=== PATIENT | male | born 1995 | race American Indian/Alaskan Native ===

== ENCOUNTER 2019-04-12 10:30 | Emergency (ER) | payer SELFPAY ==
--- NOTE | 2019-04-12 16:11 | Emergency Department Report ---
ED General Adult HPI - General Chief complaint: Psych Stated complaint: MENTAL EVAL Time Seen by Provider: 04/12/19 16:05 Source: patient Mode of arrival: Ambulatory Limitations: No Limitations - History of Present Illness Initial comments: 23-year-old male with a history of schizophrenia and depression presents stating that he would like to go to [place] with inpatient facility. Patient states he recently got a treatment 5 days ago after being released from [facility] [facility]. Patient states he has had no antipsychotic medication. Patient states that he last was admitted [facility] one year ago. Patient denies any suicidal or homicidal ideation. Patient has had no auditory hallucinations. - Related Data Home Medications Medication Instructions Recorded Confirmed Last Taken Quetiapine Fumarate [SEROquel Xr] 300 mg PO DAILY 04/12/19 04/12/19 Unknown Allergies Allergy/AdvReac Type Severity Reaction Status Date / Time No Known Allergies Allergy Unverified 04/12/19 10:32 ED Review of Systems ROS: Stated complaint: MENTAL EVAL Other details as noted in HPI Constitutional: denies: chills, fever Eyes: denies: eye pain, eye discharge, vision change ENT: denies: ear pain, throat pain Respiratory: denies: cough, shortness of breath, wheezing Cardiovascular: denies: chest pain, palpitations Endocrine: no symptoms reported Gastrointestinal: denies: abdominal pain, nausea, diarrhea Genitourinary: denies: urgency, dysuria Musculoskeletal: denies: back pain, joint swelling, arthralgia Skin: denies: rash, lesions Neurological: denies: headache, weakness, paresthesias Psychiatric: denies: anxiety, depression Hematological/Lymphatic: denies: easy bleeding, easy bruising ED Past Medical Hx - Past Medical History Hx Psychiatric Treatment: Yes (SCHZOPHENIA AND DEPRESSION) Additional medical history: CHRONIC BACK PAIN - Surgical History Past Surgical History?: No - Social History Smoking Status: Never Smoker Substance Use Type: None - Medications Home Medications: Home Medications Medication Instructions Recorded Confirmed Last Taken Type Quetiapine Fumarate [SEROquel Xr] 300 mg PO DAILY 04/12/19 04/12/19 Unknown History ED Physical Exam - General Limitations: No Limitations General appearance: alert, in no apparent distress - Head Head exam: Present: atraumatic, normocephalic - Eye Eye exam: Present: normal appearance - ENT ENT exam: Present: mucous membranes moist - Neck Neck exam: Present: normal inspection - Respiratory Respiratory exam: Present: normal lung sounds bilaterally. Absent: respiratory distress - Cardiovascular Cardiovascular Exam: Present: regular rate, normal rhythm. Absent: systolic murmur, diastolic murmur, rubs, gallop - GI/Abdominal GI/Abdominal exam: Present: soft, normal bowel sounds - Rectal Rectal exam: Present: deferred - Extremities Exam Extremities exam: Present: normal inspection - Back Exam Back exam: Present: normal inspection - Neurological Exam Neurological exam: Present: alert, oriented X3 - Psychiatric Psychiatric exam: Present: other (comfortable, no SI, no HI) - Skin Skin exam: Present: warm, dry, intact, normal color. Absent: rash ED Course Vital Signs 04/12/19 04/12/19 10:37 17:03 Temperature 98.1 F 98.2 F Pulse Rate 90 63 Respiratory 19 18 Rate Blood Pressure 151/84 138/88 [Left] O2 Sat by Pulse 98 100 Oximetry ED Medical Decision Making - Medical Decision Making Patient seen by [facility] and does not meet inpatient criteria. Patient be discharged to follow-up with psychiatry as an outpatient. - Differential Diagnosis Schizophrenia; Critical care attestation.: If time is entered above; I have spent that time in minutes in the direct care of this critically ill patient, excluding procedure time. ED Disposition Clinical Impression: Schizophrenia Disposition: DC-01 TO HOME OR SELFCARE Is pt being admited?: No Condition: Stable Referrals: [facility] [Outside] - 3-5 Days [facility] YURI ABRAHAM MD [Primary Care Provider] - 3-5 Days Time of Disposition: 18:52 Print Language: PARAGUAYAN
[2019-04-12 21:03] VITALS: BP 125/68
== END 2019-04-12 21:05 | disposition home or self-care (01) ==
LOC: ED 10:30 → EEVIPCON 10:30 → ED 21:05
DX: F20.9 Schizophrenia, unspecified (principal); F32.9 Major depressive disorder, single episode, unspecified; M54.9 Dorsalgia, unspecified; G89.29 Other chronic pain; Z79.899 Other long term (current) drug therapy

== ENCOUNTER 2020-06-14 00:04 | Emergency (ER) | payer SELFPAY ==
[2020-06-14 01:55] LABS: Basophils % (Auto) 0.4 % (0.0-1.8); Eosinophils % (Auto) 0.5 % (0.0-4.3); Hematocrit 42.2 % (35.5-45.6); Hemoglobin 13.9 gm/dl (11.8-15.2); Lymphocytes # (Auto) 2.5 K/mm3 (1.2-5.4); Lymphocytes % (Auto) 40.4 % (13.4-35.0); Mean Corpuscular HGB Conc 33 % (32-34); Mean Corpuscular Volume 86 fl (84-94); Monocytes # (Auto) 0.5 K/mm3 (0.0-0.8); Monocytes % (Auto) 8.6 % (0.0-7.3); Platelet Count 199 K/mm3 (140-440); Red Cell Distribution Width 13.5 % (13.2-15.2)
--- NOTE | 2020-06-14 01:56 | Emergency Department Report ---
ED Psych HPI - General Chief Complaint: Psych Stated Complaint: MH EVAL/HALLUCINATIONS Time Seen by Provider: 06/14/20 01:50 Source: patient Mode of arrival: Ambulatory Limitations: No Limitations - History of Present Illness Initial Comments: Patient is a 25-year-old male that presents emergency room with complaints of multiple hallucinations. Patient states he is having audio and visual hallucinations. Patient states he cannot control them anymore. Patient denies suicidal homicidal ideation. Patient states he is feeling depressed and anxious. Patient states he is having racing thoughts. Patient denies recent travel. Patient denies recent international travel. Patient denies exposure to the novel coronavirus. Patient denies sick contacts. Patient denies fever and chills. Patient denies cough. Patient denies diarrhea. Patient denies coming in contact with anybody with symptoms of the novel coronavirus. Complaint: other - Related Data Home Medications Medication Instructions Recorded Confirmed Last Taken Quetiapine Fumarate [SEROquel Xr] 300 mg PO DAILY 04/12/19 04/12/19 Unknown Previous Rx's Medication Instructions Recorded Last Taken Type Quetiapine Fumarate [SEROquel] 300 mg PO QDAY #10 tablet 04/12/19 Unknown Rx Allergies Allergy/AdvReac Type Severity Reaction Status Date / Time No Known Allergies Allergy Unverified 04/12/19 10:32 ED Review of Systems ROS: Stated complaint: MH EVAL/HALLUCINATIONS Other details as noted in HPI Constitutional: denies: chills, fever Eyes: denies: eye pain, eye discharge, vision change ENT: denies: ear pain, throat pain Respiratory: denies: cough, shortness of breath, wheezing Cardiovascular: denies: chest pain, palpitations Endocrine: no symptoms reported Gastrointestinal: denies: abdominal pain, nausea, diarrhea Genitourinary: denies: urgency, dysuria Musculoskeletal: denies: back pain, joint swelling, arthralgia Skin: denies: rash, lesions Neurological: denies: headache, weakness, paresthesias Psychiatric: as per HPI, anxiety, depression, auditory hallucinations, visual hallucinations. denies: homicidal thoughts, suicidal thoughts Hematological/Lymphatic: denies: easy bleeding, easy bruising ED Past Medical Hx - Past Medical History Previous Medical History?: Yes Hx Psychiatric Treatment: Yes (SCHIZOPHrENIA AND DEPRESSION) Additional medical history: CHRONIC BACK PAIN - Surgical History Past Surgical History?: No - Family History Family history: no significant - Social History Smoking Status: Current Every Day Smoker Substance Use Type: None - Medications Home Medications: Home Medications Medication Instructions Recorded Confirmed Last Taken Type Quetiapine Fumarate [SEROquel Xr] 300 mg PO DAILY 04/12/19 04/12/19 Unknown History Quetiapine Fumarate [SEROquel] 300 mg PO QDAY #10 tablet 04/12/19 Unknown Rx ED Physical Exam - General Limitations: No Limitations General appearance: alert, in no apparent distress - Head Head exam: Present: atraumatic, normocephalic - Eye Eye exam: Present: normal appearance - ENT ENT exam: Present: mucous membranes moist - Neck Neck exam: Present: normal inspection - Respiratory Respiratory exam: Present: normal lung sounds bilaterally. Absent: respiratory distress, wheezes, rales - Cardiovascular Cardiovascular Exam: Present: regular rate, normal rhythm. Absent: systolic murmur, diastolic murmur, rubs, gallop - GI/Abdominal GI/Abdominal exam: Present: soft, normal bowel sounds - Rectal Rectal exam: Present: deferred - Extremities Exam Extremities exam: Present: normal inspection - Back Exam Back exam: Present: normal inspection - Neurological Exam Neurological exam: Present: alert, oriented X3 - Psychiatric Psychiatric exam: Present: depressed, flat affect - Expanded Psychiatric Exam Expanded Focused psych exam: Present: pressured speech, paranoid, restlessness - Skin Skin exam: Present: warm, dry, intact, normal color. Absent: rash ED Course Vital Signs 06/14/20 00:57 Temperature 98.1 F Pulse Rate 74 Respiratory 18 Rate Blood Pressure 141/69 O2 Sat by Pulse 99 Oximetry - Reevaluation(s) Reevaluation #1: Patient placed on a ER hold. 06/14/20 02:00 Reevaluation #2: Patient is medically cleared. Patient will remain in the ER as an ER hold until patient is psychiatric clear but by psych. Patient's final disposition will come from our mental health and psychiatry team. 06/14/20 04:43 ED Medical Decision Making - Lab Data Result diagrams: 06/14/20 01:32 06/14/20 01:32 - Medical Decision Making Patient is a 25-year-old male that presents emergency room for hallucinations. Patient had pretty severe hallucinations. Patient also noted flat affect. Patient will be evaluated by our mental health team. Patient had medical clearance labs. Patient's labs are essentially unremarkable. Patient will remain in the ER as an ER hold until the patient is cleared mental health team. Patient's final disposition will come from our mental health team. - Differential Diagnosis Hallucinations, schizophrenia, depression, anxiety Critical care attestation.: If time is entered above; I have spent that time in minutes in the direct care of this critically ill patient, excluding procedure time. ED Disposition Clinical Impression: Hallucinations Psychosis Qualifiers: Psychosis type: unspecified psychosis type Qualified Code(s): F29 - Unspecified psychosis not due to a substance or known physiological condition Is pt being admited?: No Does the pt Need Aspirin: No Condition: Stable Referrals: PRIMARY CARE, [Primary Care Provider] - 2-3 Days Time of Disposition: 04:46
[2020-06-14 02:11] LABS: BUN/Creatinine Ratio 14; Blood Urea Nitrogen 14 mg/dL (9-20); Calcium 9.4 mg/dL (8.4-10.2); Hemolysis Index 11
[2020-06-14 02:23] LABS: Amphetamine Screen,Urine PRESUMPTIVE NEGATIVE; Benzodiazepines Screen,Urine PRESUMPTIVE NEGATIVE; Cannabinoid Screen,Urine PRESUMPTIVE POSITIVE; Cocaine Screen,Urine PRESUMPTIVE NEGATIVE; Methadone Screen,Urine PRESUMPTIVE NEGATIVE; Opiate Screen,Urine PRESUMPTIVE NEGATIVE
[2020-06-14 02:39] LABS: Bilirubin,Urine NEG (Negative); Blood,Urine NEG (Negative); Color,Urine Yellow (Yellow); Hyaline Casts,Urine 1 /LPF; Mucus,Urine 2+ /HPF; Protein,Urine <15 mg/dL mg/dL (Negative)
[2020-06-14 10:28] VITALS: BP 144/93
--- NOTE | 2020-06-14 12:59 | Event Note ---
Date: 06/14/20 Patient can be discharged home and have follow-up resources with mental health patient is not having any active suicidal or homicidal ideation
== END 2020-06-14 13:13 | disposition home or self-care (01) ==
LOC: ED 00:04
DX: F29 Unspecified psychosis not due to a substance or known physiological condition (principal); F20.9 Schizophrenia, unspecified; F17.200 Nicotine dependence, unspecified, uncomplicated; Z79.899 Other long term (current) drug therapy
CPT/HCPCS: 36415; 80048; 80307; 80320; 81001; 85025; G0480

== ENCOUNTER 2020-07-30 02:47 | Emergency (ER) | payer SELFPAY ==
[2020-07-30 03:29] LABS: Basophils % (Auto) 0.5 % (0.0-1.8); Eosinophils % (Auto) 0.3 % (0.0-4.3); Hematocrit 40.7 % (35.5-45.6); Hemoglobin 13.4 gm/dl (11.8-15.2); Lymphocytes # (Auto) 1.9 K/mm3 (1.2-5.4); Lymphocytes % (Auto) 32.5 % (13.4-35.0); Mean Corpuscular HGB Conc 33 % (32-34); Mean Corpuscular Volume 86 fl (84-94); Monocytes # (Auto) 0.4 K/mm3 (0.0-0.8); Monocytes % (Auto) 6.4 % (0.0-7.3); Platelet Count 202 K/mm3 (140-440); Red Blood Count 4.71 M/mm3 (3.65-5.03); Red Cell Distribution Width 13.6 % (13.2-15.2)
--- NOTE | 2020-07-30 03:39 | Emergency Department Report ---
ED Psych HPI - General Chief Complaint: Psych Stated Complaint: MH Time Seen by Provider: 07/30/20 03:05 Source: patient Mode of arrival: Ambulatory - History of Present Illness Initial Comments: Patient is a 25-year-old [place] male with past medical history of schizophrenia who is presenting with homicidal thoughts. States these are generalized and not directed towards anyone in particular. Just feels like he has a rage in him. He is hearing voices which are command hallucinations. Denies suicidal ideations. States he has used marijuana tonight but denies any other drug use or alcohol. Patient states he should be on medications but is not currently. - Related Data Home Medications Medication Instructions Recorded Confirmed Last Taken Quetiapine Fumarate [SEROquel Xr] 300 mg PO DAILY 04/12/19 04/12/19 Unknown Previous Rx's Medication Instructions Recorded Last Taken Type Quetiapine Fumarate [SEROquel] 300 mg PO QDAY #10 tablet 04/12/19 Unknown Rx Allergies Allergy/AdvReac Type Severity Reaction Status Date / Time No Known Allergies Allergy Unverified 04/12/19 10:32 ED Review of Systems ROS: Stated complaint: MH Other details as noted in HPI Comment: All other systems reviewed and negative ED Past Medical Hx - Past Medical History Previous Medical History?: Yes Hx Psychiatric Treatment: Yes (SCHIZOPHrENIA AND DEPRESSION) Additional medical history: CHRONIC BACK PAIN - Surgical History Past Surgical History?: No - Social History Smoking Status: Current Every Day Smoker Substance Use Type: None, Marijuana - Medications Home Medications: Home Medications Medication Instructions Recorded Confirmed Last Taken Type Quetiapine Fumarate [SEROquel Xr] 300 mg PO DAILY 04/12/19 04/12/19 Unknown History Quetiapine Fumarate [SEROquel] 300 mg PO QDAY #10 tablet 04/12/19 Unknown Rx ED Physical Exam - General Limitations: No Limitations General appearance: alert, in no apparent distress - Head Head exam: Present: atraumatic, normocephalic - Eye Eye exam: Present: normal appearance - ENT ENT exam: Present: normal orophraynx, mucous membranes moist - Neck Neck exam: Present: normal inspection - Respiratory Respiratory exam: Present: normal lung sounds bilaterally. Absent: respiratory distress, wheezes, rales, rhonchi, stridor - Cardiovascular Cardiovascular Exam: Present: regular rate, normal rhythm. Absent: systolic murmur, diastolic murmur, rubs, gallop - GI/Abdominal GI/Abdominal exam: Present: soft, normal bowel sounds - Rectal Rectal exam: Present: deferred - Extremities Exam Extremities exam: Present: normal inspection - Back Exam Back exam: Present: normal inspection - Neurological Exam Neurological exam: Present: alert, oriented X3 - Psychiatric Psychiatric exam: Present: normal affect, normal mood - Skin Skin exam: Present: warm, dry, intact, normal color. Absent: rash ED Course Vital Signs 07/30/20 02:50 Temperature 97.4 F L Pulse Rate 92 H Respiratory 18 Rate Blood Pressure 143/90 O2 Sat by Pulse 98 Oximetry - Reevaluation(s) Reevaluation #1: 07/30/20 04:49 Patient is medically cleared for psychiatric evaluation ED Medical Decision Making - Lab Data Result diagrams: 07/30/20 03:00 07/30/20 03:00 Lab Results 07/30/20 07/30/20 07/30/20 Range/Units 03:00 03:00 03:00 WBC 5.8 (4.5-11.0) K/mm3 RBC 4.71 (3.65-5.03) M/mm3 Hgb 13.4 (11.8-15.2) gm/dl Hct 40.7 (35.5-45.6) % MCV 86 (84-94) fl MCH 28 (28-32) pg MCHC 33 (32-34) % RDW 13.6 (13.2-15.2) % Plt Count 202 (140-440) K/mm3 Lymph % (Auto) 32.5 (13.4-35.0) % Lake % (Auto) 6.4 (0.0-7.3) % Eos % (Auto) 0.3 (0.0-4.3) % Baso % (Auto) 0.5 (0.0-1.8) % Lymph # (Auto) 1.9 (1.2-5.4) K/mm3 Lake # (Auto) 0.4 (0.0-0.8) K/mm3 Eos # (Auto) 0.0 (0.0-0.4) K/mm3 Baso # (Auto) 0.0 (0.0-0.1) K/mm3 Seg Neutrophils % 60.3 (40.0-70.0) % Seg Neutrophils # 3.5 (1.8-7.7) K/mm3 Sodium 142 (137-145) mmol/L Potassium 3.6 (3.6-5.0) mmol/L Chloride 106.1 (98-107) mmol/L Carbon Dioxide 24 (22-30) mmol/L Anion Gap 16 mmol/L BUN 9 (9-20) mg/dL Creatinine 0.9 (0.8-1.3) mg/dL Estimated GFR > 60 ml/min BUN/Creatinine Ratio 10 % Glucose 131 H (75-100) mg/dL Calcium 8.8 (8.4-10.2) mg/dL Urine Color (Yellow) Urine Turbidity (Clear) Urine pH (5.0-7.0) Ur Specific Corea (1.003-1.030) Urine Protein (Negative) mg/dL Urine Glucose (UA) (Negative) mg/dL Urine Ketones (Negative) mg/dL Urine Blood (Negative) Urine Nitrite (Negative) Urine Bilirubin (Negative) Urine Urobilinogen (<2.0) mg/dL Ur Leukocyte Esterase (Negative) Urine WBC (Auto) (0.0-6.0) /HPF Urine RBC (Auto) (0.0-6.0) /HPF Urine Mucus /HPF Salicylates (2.8-20.0) mg/dL Urine Opiates Screen Urine Methadone Screen Acetaminophen (10.0-30.0) ug/mL Ur Barbiturates Screen Ur Phencyclidine Scrn Ur Amphetamines Screen U Benzodiazepines Scrn Urine Cocaine Screen U Marijuana (THC) Screen Drugs of Abuse Note Plasma/Serum Alcohol < 0.01 (0-0.07) % 07/30/20 07/30/20 07/30/20 Range/Units 03:03 03:03 03:44 WBC (4.5-11.0) K/mm3 RBC (3.65-5.03) M/mm3 Hgb (11.8-15.2) gm/dl Hct (35.5-45.6) % MCV (84-94) fl MCH (28-32) pg MCHC (32-34) % RDW (13.2-15.2) % Plt Count (140-440) K/mm3 Lymph % (Auto) (13.4-35.0) % Lake % (Auto) (0.0-7.3) % Eos % (Auto) (0.0-4.3) % Baso % (Auto) (0.0-1.8) % Lymph # (Auto) (1.2-5.4) K/mm3 Lake # (Auto) (0.0-0.8) K/mm3 Eos # (Auto) (0.0-0.4) K/mm3 Baso # (Auto) (0.0-0.1) K/mm3 Seg Neutrophils % (40.0-70.0) % Seg Neutrophils # (1.8-7.7) K/mm3 Sodium (137-145) mmol/L Potassium (3.6-5.0) mmol/L Chloride (98-107) mmol/L Carbon Dioxide (22-30) mmol/L Anion Gap mmol/L BUN (9-20) mg/dL Creatinine (0.8-1.3) mg/dL Estimated GFR ml/min BUN/Creatinine Ratio % Glucose (75-100) mg/dL Calcium (8.4-10.2) mg/dL Urine Color Yellow (Yellow) Urine Turbidity Clear (Clear) Urine pH 6.0 (5.0-7.0) Ur Specific Corea 1.020 (1.003-1.030) Urine Protein <15 mg/dl (Negative) mg/dL Urine Glucose (UA) Neg (Negative) mg/dL Urine Ketones Neg (Negative) mg/dL Urine Blood Neg (Negative) Urine Nitrite Neg (Negative) Urine Bilirubin Neg (Negative) Urine Urobilinogen < 2.0 (<2.0) mg/dL Ur Leukocyte Esterase Neg (Negative) Urine WBC (Auto) < 1.0 (0.0-6.0) /HPF Urine RBC (Auto) < 1.0 (0.0-6.0) /HPF Urine Mucus Few /HPF Salicylates < 0.3 L (2.8-20.0) mg/dL Urine Opiates Screen Urine Methadone Screen Acetaminophen 5.0 L (10.0-30.0) ug/mL Ur Barbiturates Screen Ur Phencyclidine Scrn Ur Amphetamines Screen U Benzodiazepines Scrn Urine Cocaine Screen U Marijuana (THC) Screen Drugs of Abuse Note Plasma/Serum Alcohol (0-0.07) % 07/30/20 Range/Units 03:44 WBC (4.5-11.0) K/mm3 RBC (3.65-5.03) M/mm3 Hgb (11.8-15.2) gm/dl Hct (35.5-45.6) % MCV (84-94) fl MCH (28-32) pg MCHC (32-34) % RDW (13.2-15.2) % Plt Count (140-440) K/mm3 Lymph % (Auto) (13.4-35.0) % Lake % (Auto) (0.0-7.3) % Eos % (Auto) (0.0-4.3) % Baso % (Auto) (0.0-1.8) % Lymph # (Auto) (1.2-5.4) K/mm3 Lake # (Auto) (0.0-0.8) K/mm3 Eos # (Auto) (0.0-0.4) K/mm3 Baso # (Auto) (0.0-0.1) K/mm3 Seg Neutrophils % (40.0-70.0) % Seg Neutrophils # (1.8-7.7) K/mm3 Sodium (137-145) mmol/L Potassium (3.6-5.0) mmol/L Chloride (98-107) mmol/L Carbon Dioxide (22-30) mmol/L Anion Gap mmol/L BUN (9-20) mg/dL Creatinine (0.8-1.3) mg/dL Estimated GFR ml/min BUN/Creatinine Ratio % Glucose (75-100) mg/dL Calcium (8.4-10.2) mg/dL Urine Color (Yellow) Urine Turbidity (Clear) Urine pH (5.0-7.0) Ur Specific Corea (1.003-1.030) Urine Protein (Negative) mg/dL Urine Glucose (UA) (Negative) mg/dL Urine Ketones (Negative) mg/dL Urine Blood (Negative) Urine Nitrite (Negative) Urine Bilirubin (Negative) Urine Urobilinogen (<2.0) mg/dL Ur Leukocyte Esterase (Negative) Urine WBC (Auto) (0.0-6.0) /HPF Urine RBC (Auto) (0.0-6.0) /HPF Urine Mucus /HPF Salicylates (2.8-20.0) mg/dL Urine Opiates Screen Presumptive negative Urine Methadone Screen Presumptive negative Acetaminophen (10.0-30.0) ug/mL Ur Barbiturates Screen Presumptive negative Ur Phencyclidine Scrn Presumptive negative Ur Amphetamines Screen Presumptive negative U Benzodiazepines Scrn Presumptive negative Urine Cocaine Screen Presumptive negative U Marijuana (THC) Screen Presumptive positive Drugs of Abuse Note Disclamer Plasma/Serum Alcohol (0-0.07) % Critical care attestation.: If time is entered above; I have spent that time in minutes in the direct care of this critically ill patient, excluding procedure time. ED Disposition Condition: Stable Referrals: PRIMARY CARE [Primary Care Provider] - 3-5 Days
[2020-07-30 03:45] LABS: BUN/Creatinine Ratio 10; Blood Urea Nitrogen 9 mg/dL (9-20); Calcium 8.8 mg/dL (8.4-10.2); Hemolysis Index 8
[2020-07-30 03:59] LABS: Bilirubin,Urine NEG (Negative); Blood,Urine NEG (Negative); Color,Urine Yellow (Yellow); Mucus,Urine FEW /HPF; Protein,Urine <15 mg/dL mg/dL (Negative); RBC,Urine < 1.0 /HPF (0.0-6.0); Urobilinogen,Urine < 2.0 mg/dL (<2.0); WBC,Urine < 1.0 /HPF (0.0-6.0)
[2020-07-30 04:05] LABS: Amphetamine Screen,Urine PRESUMPTIVE NEGATIVE; Benzodiazepines Screen,Urine PRESUMPTIVE NEGATIVE; Cannabinoid Screen,Urine PRESUMPTIVE POSITIVE; Cocaine Screen,Urine PRESUMPTIVE NEGATIVE; Methadone Screen,Urine PRESUMPTIVE NEGATIVE; Opiate Screen,Urine PRESUMPTIVE NEGATIVE
--- NOTE | 2020-07-30 10:30 | Consultation ---
History of Present Illness - Reason for Consult Consult date: 07/30/20 Reason for consult: homicidal, hallucinations - History of Present Psychiatric Illness Naren King is a 25-year-old male "with past medical history of schizophrenia who is presenting with homicidal thoughts. States these are generalized and not directed towards anyone in particular. Just feels like he has a rage in him. He is hearing voices which are command hallucinations. Denies suicidal ideation." During my interview with the patient today, he is lying down with the linen over his head. When asked he pulls it down and talks with me. The patient makes poor eye contact. He says he presented to the ER because he "felt homicidal." The patient says "everybody in my family wants to kill each other." He then says "I pretty much don't have one." When asked why did he want to kill someone, the patient says "I don't know. I'm just mentally ill. It's hard for me to put in words why I feel like I want to kill someone." He says he sees "fast moving figures that he can't make out." The patient also verbalizes hearing "whispering." When asked what was the whispering, the patient says "I'd rather not talk about it." He says he was diagnosed with bipolar and schizophrenia. The patient says he's been off his medications "for a long time." He could not recall them. He verbalizes use of "meth, crack and THC." PAST PSYCHIATRIC HISTORY Diagnoses: schizophrenia, bipolar Suicide attempts or Self-harm behavior: Denies Prior psychiatric hospitalizations: Yes Substance Abuse history: Crack, meth, THC Previous psychiatric medications tried: unable to recall Outpatient treatment: not in a long time PAST MEDICAL HISTORY: None reported Family Psychiatric History: None reported or documented SOCIAL HISTORY Marital Status: Single Living Arrangements: Homeless Employment Status: Unemployed Access to guns/weapons: Denies Education: History of Abuse: Denies Legal History: none reported REVIEW OF SYSTEMS Constitutional: Negative for weight loss ENT: Negative for stridor Respiratory: Negative for cough or hemoptysis All other systems reviewed and are negative MENTAL STATUS EXAMINATION General Appearance and Behavior: Age appropriate, good hygiene, wearing appropriate clothes, poor eye contact Cooperation: Participating/engaged Psychomotor Behavior: Psychomotor normal Mood: "irritable" Affect and affective range: congruent with stated mood Thought Process: illogical Thought Content: hallucinations, homicidal thoughts Speech: Normal rate, volume and rhythm Suicidal Ideation: Denies Homicidal Ideation: Yes Hallucinations: A/V Delusions: None elicited Impulse Control: Impaired Insight and Judgment: impaired insight and judgment Memory: Limited Attention: Limited Orientation: Alert, oriented Assessment and Plan (1) Schizophrenia (2) Substance Use Disorder (3) Noncompliance with other medical treatments and regimen Treatment 1013 Start Seroquel 50mg po BID Start Trazodone 50mg po daily Start Depakote DR 125mg po BID Sitter: Defer to primary Medical: per primary Disposition: Recommend acute inpatient psychiatric treatment Will follow up 08/01. Thank you for this consult. Case staffed with Dr. Naranjo Medications and Allergies Allergies Allergy/AdvReac Type Severity Reaction Status Date / Time No Known Allergies Allergy Unverified 04/12/19 10:32 Home Medications Medication Instructions Recorded Confirmed Last Taken Type Quetiapine Fumarate [SEROquel Xr] 300 mg PO DAILY 04/12/19 04/12/19 Unknown History Quetiapine Fumarate [SEROquel] 300 mg PO QDAY #10 tablet 04/12/19 Unknown Rx Mental Status Exam - Vital signs Last Vital Signs Temp 98.1 F 07/30/20 09:00 Pulse 87 07/30/20 09:00 Resp 20 07/30/20 09:00 BP 125/76 07/30/20 09:00 Pulse Ox 100 07/30/20 09:00 Results Result Diagrams: 07/30/20 03:00 07/30/20 03:00 Abnormal lab results 07/30/20 07/30/20 07/30/20 Range/Units 03:00 03:03 03:03 Glucose 131 H (75-100) mg/dL Salicylates < 0.3 L (2.8-20.0) mg/dL Acetaminophen 5.0 L (10.0-30.0) ug/mL All other labs normal.
[2020-07-30] MEDS: QUEtiapine 25 MG TAB PO SCH ×3 (14:54→21:44)
[2020-07-30] MEDS: DIVALPROEX DR 125 MG TAB PO SCH ×2 (16:05→21:44)
[2020-07-30] MEDS ORDERED: traZODone 50 MG TAB PO SCH (22:00)
[2020-07-31] MEDS ORDERED: HALOPERIDOL LACTATE 5 MG/1 ML INJ IM NR (08:27)
[2020-07-31] MEDS ORDERED: LORazepam 2 MG/ML VIAL IM NR (08:27)
[2020-07-31] MEDS ORDERED: diphenhydrAMINE 50 MG/ML VIAL IM NR (08:27)
[2020-07-31] MEDS ORDERED: diphenhydrAMINE 50 MG/ML VIAL ONE (08:31)
--- NOTE | 2020-07-31 08:35 | Progress Note ---
Subjective - Reason for Consult Consult date: 07/31/20 Reason for consult: homicidal - Chief Complaint Chief complaint: The patient was seem today. He is irritable and agitated. When asking the patient why has he been refusing his meds, he stares at me and pounds his fist lightly in his hand and states "what questions do you want to ask me." I backed out of the room. The patient is heard cursing and making threats as I am walking up the brooks. The sitter is with the patient. The sitter comes and tells me to stay away from the patient because his is upset and talking about fighting me. Security is call. Dr. Naranjo is also on the floor and advised to give the patient B52. REVIEW OF SYSTEMS Constitutional: Negative for weight loss ENT: Negative for stridor Respiratory: Negative for cough or hemoptysis All other systems reviewed and are negative MENTAL STATUS EXAMINATION General Appearance and Behavior: Age appropriate, good hygiene, wearing appropriate clothes, poor eye contact, angry, irritable aggressive Cooperation: Participating/engaged Psychomotor Behavior: Psychomotor normal Mood: "irritable" Affect and affective range: congruent with stated mood Thought Process: illogical Thought Content: Speech: Normal rate, volume and rhythm Suicidal Ideation: Homicidal Ideation: Hallucinations: Delusions: None elicited Impulse Control: Impaired Insight and Judgment: impaired insight and judgment Memory: Limited Attention: Limited Orientation: Alert, oriented Assessment and Plan (1) Schizophrenia (2) Substance Use Disorder (3) Noncompliance with other medical treatments and regimen Treatment 1013 Haldol 5mg IM once Benadryl 50mg IM once Ativan 2mg IM once Sitter: Defer to primary Medical: per primary Disposition: Recommend acute inpatient psychiatric treatment Will follow. Thank you for this consult. Case staffed with Dr. Naranjo Mental Status Exam - Vital signs Last Vital Signs Temp 98.0 F 07/31/20 02:24 Pulse 70 07/31/20 02:24 Resp 16 07/31/20 02:24 BP 114/45 07/31/20 02:24 Pulse Ox 98 07/31/20 02:24
[2020-07-31 08:38] VITALS: BP 133/86
== END 2020-07-31 11:42 | disposition home or self-care (01) ==
LOC: ED 02:47 → EEVIPCON 02:47 → ED 07-31 11:42
DX: F20.9 Schizophrenia, unspecified (principal); F32.9 Major depressive disorder, single episode, unspecified; F17.200 Nicotine dependence, unspecified, uncomplicated; F12.10 Cannabis abuse, uncomplicated; Z79.899 Other long term (current) drug therapy
CPT/HCPCS: 36415; 80048; 80307; 81001; 85025; 99284; J1200; J1630; J2060; 80320; G0480

== ENCOUNTER 2020-09-02 22:08 | Emergency (ER) | payer SELFPAY ==
--- NOTE | 2020-09-02 22:42 | Emergency Department Report ---
Blank Doc - Documentation Documentation: 25-year-old male that presents with suicidal ideation with no plan. 1- This initial assessment/diagnostic orders/clinical plan/ treatment(s) is/are subject to change based on pt's health status, clinical progression and re- assessment by fellow clinical providers in the ED. Further treatment and workup at subsequent clinical provers discretion. Patient/guardians urged not to elope from ED as their condition may be serious if not clinically assessed and managed. 2-psych orders initiated 3-patient placed on 1013
--- NOTE | 2020-09-02 23:35 | Emergency Department Report ---
<GEOFFREYJOHNLEONA ElenaIan - Last Filed: 09/03/20 00:49> ED Psych HPI - General Chief Complaint: Medical Clearance Stated Complaint: SUICIDAL/HOMELESS Time Seen by Provider: 09/02/20 22:40 Source: patient Mode of arrival: Ambulatory - History of Present Illness Initial Comments: Patient is 25 years old male with history of schizophrenia. Patient presented to the ER stating that he is depressed and he is suicidal. When asked further about if he has any plan patient said he does not have a plan. Patient denied any suicidal attempt before. Patient also denied any homicidal ideation. No visual or auditory hallucination. MD Complaint: suicidal ideation, feels depressed -: Sudden, This morning Associated Psychiatric Symptoms: depression, suicidal ideation Quality: constant Associated Symptoms: denies other symptoms Treatments Prior to Arrival: none If Self Harm: admits thoughts of - Related Data Home Medications Medication Instructions Recorded Confirmed Last Taken No Known Home Medications [No 09/03/20 09/03/20 Unknown Reported Home Medications] Allergies Allergy/AdvReac Type Severity Reaction Status Date / Time No Known Allergies Allergy Unverified 04/12/19 10:32 ED Review of Systems Comment: All other systems reviewed and negative Constitutional: denies: chills, fever Respiratory: denies: cough, shortness of breath, SOB with exertion, SOB at rest Cardiovascular: denies: chest pain Gastrointestinal: denies: abdominal pain, nausea, vomiting Musculoskeletal: denies: back pain Neurological: denies: headache, weakness, numbness, paresthesias, confusion, abnormal gait ED Past Medical Hx - Past Medical History Previous Medical History?: Yes Hx Psychiatric Treatment: Yes (SCHIZOPHrENIA AND DEPRESSION) Additional medical history: CHRONIC BACK PAIN - Social History Smoking Status: Never Smoker Substance Use Type: Marijuana - Medications Home Medications: Home Medications Medication Instructions Recorded Confirmed Last Taken Type No Known Home Medications [No 09/03/20 09/03/20 Unknown History Reported Home Medications] ED Physical Exam - General Limitations: No Limitations General appearance: alert, in no apparent distress - Head Head exam: Present: atraumatic, normocephalic, normal inspection - Eye Eye exam: Present: normal appearance, PERRL - ENT ENT exam: Present: normal exam, normal orophraynx, mucous membranes moist - Neck Neck exam: Present: normal inspection, full ROM. Absent: tenderness, meningismus - Respiratory Respiratory exam: Present: normal lung sounds bilaterally - Cardiovascular Cardiovascular Exam: Present: regular rate, normal rhythm, normal heart sounds - GI/Abdominal GI/Abdominal exam: Present: soft, normal bowel sounds. Absent: distended, tenderness, guarding, rebound, rigid, organomegaly, mass, bruit, pulsatile mass, hernia - Extremities Exam Extremities exam: Present: normal inspection, full ROM, normal capillary refill. Absent: tenderness, pedal edema, joint swelling, calf tenderness - Back Exam Back exam: Present: normal inspection, full ROM. Absent: CVA tenderness (R), CVA tenderness (L) - Neurological Exam Neurological exam: Present: alert, oriented X3, CN II-XII intact - Psychiatric Psychiatric exam: Present: flat affect, suicidal ideation. Absent: homicidal ideation - Skin Skin exam: Present: warm, intact, normal color ED Medical Decision Making - Lab Data Result diagrams: 09/02/20 22:56 09/02/20 22:56 - Medical Decision Making Patient is 25 years old male with history of schizophrenia. Patient presented to the ER stating that he is depressed and he is suicidal. When asked further about if he has any plan patient said he does not have a plan. Patient denied any suicidal attempt before. Patient also denied any homicidal ideation. No visual or auditory hallucination. Labs reviewed and is unremarkable. Patient is medically cleared to be evaluated by mental health. ED Disposition Clinical Impression: Bipolar 1 disorder, manic, mild, Homeless, Suicidal ideation Disposition: DC-01 TO HOME OR SELFCARE Condition: Stable Instructions: Managing Bipolar Disorder, Suicidal Feelings: How to Help Yoursel f Additional Instructions: The [facility] is to take chronically homeless men and help them overcome their barriers, change them as human beings,making them productive and self- sufficient individuals. Each [facility] participant is housed at our facility for up to a year while they participate in transitional work (earning $7.40/hr for 30+ hours per week). All participants renounce dependency and remain drug and alcohol free. Personal support, case management, and workforce training is offered throughout the program. We also provide AA/NA Classes, GED classes, support in obtaining a local owner operator truck driver's licenses,help setting up a bank account,and life skill preparation courses. IF A MAN IS COMMITTED TO BEING CLEAN, TO ADDRESSING THE PAST, AND TO WORKING, WE WILL HELP HIM GET A POWER PLANT ASSISTANT JOB, TRANSPORTATION AND PERMANENT HOUSING WITHIN A YEAR. [place] [employer] [address] [id number] [email or web address] [email or web address] RESOURCES: [facility] NEED HELP? If you are in need of help or know someone who does, please contact us at [email or web address] call , or come to our offices at [address] [place] [address], Thursday-Thursday beginning at 8AM. [facility] Males only Admission at 7am Thu to Thu Address: [address] [place] [address] Client Engagement [phone] Regular program admission occurs Thursday through Thursday at 7:00 amand operates on a first come, first serve basis.Because we cant anticipate program availability in advance andprogram spots are in high demand, we recommend arriving early. Space fills up fast! Next steps can include: Assignment to a [facility] program bed Connection to and placement in a partner program, or Referral to a partner agency [facility]: [facility], WOMEN Address: [address] [place] [address] How do I join the [facility] housing program? Our housing programs are offered based on availability. If you are looking to participate in our housing program, simply call [phone] to find out if we have available space. Since we do receive many calls, please allow up to 48 hours for one of our housing specialists to return your call. If we do not have vacancies, we suggest callingthe [facility] hotline at 211 for additional ho using options. [facility] [place] only Admission at 4:30pm daily Address: [place] [address] [facility] Admission from 8am to 10am Daily No intake until 07/23/20 Address: [place] [address] [facility] WOMEN and FAMILY Admission Address: [place] [address] Professional and Agency Contacts To help Resolve Crises(16/02) ID Crisis Line: Suicide Prevention Line: Crisis Text Line: Text START to 372205 Emergency: 911 Outpatient COMMUNITY Behavioral Health Resources: CARLIB: [facility] [address] [place], [place] [address] YOUNG: [facility] [address] [place] [address] ALEKSANDR: [facility] - [address] [place] [address] Thursday thru Thursday - 8am - 5pm [facility]: [facility] Address: [address] [place] [address] [facility]: [facility] Address: [address] [place] [address] Thursday thru Thursday- 7am-2pm [facility] Address: [address] [place] [address] Thursday thru Thursday: 8:30AM-5PM In case of an emergency, please contact the following numbers: ID Crisis and Access Line: Number: Crisis Text Line: (Text START) Number: 866200 Suicide Prevention Line: Number: Emergency Number: 911 SUBSTANCE ABUSE PROGRAMS: [facility]: Location: [place], [place] [employer] [facility] Address: [address] [place] [address] [facility]: Address: [address] [place] [address] [facility]: Address: [address] [place] [address] [facility] Community: Address: [address] [place] [address] [facility] Address: [address] [place] [address]. Please contact above numbers to attempt placement into free based program. Medicaid Programs: [facility]: Address: [address] [facility] [place] [address] [facility]: Address: [place] [address] Referrals: PRIMARY CARE, [Primary Care Provider] - 3-5 Days [facility] [Outside] - 3-5 Days <MARIAM ROGERS - Last Filed: 09/03/20 11:13> ED Review of Systems ROS: Stated complaint: SUICIDAL/HOMELESS Other details as noted in HPI ED Course Vital Signs 09/02/20 09/02/20 09/03/20 22:41 23:45 02:23 Temperature 98.0 F 97.4 F L Pulse Rate 102 H 97 H Respiratory 17 16 18 Rate Blood Pressure 158/83 Blood Pressure 134/72 [Left] O2 Sat by Pulse 100 100 Oximetry 09/03/20 09/03/20 07:47 08:15 Temperature 98.5 F Pulse Rate 101 H Respiratory 18 18 Rate Blood Pressure Blood Pressure 106/63 [Left] O2 Sat by Pulse 98 Oximetry ED Medical Decision Making - Lab Data Result diagrams: 09/02/20 22:56 09/02/20 22:56 - Medical Decision Making As per note below Assessment and Plan - Psychiatric problem (1) Bipolar 1 disorder, manic, mild Current Visit: Yes Status: Acute F31.11 Treatment Plan Patient informed of social resources available for homelessness versus usp in programs to enable patient to become more independent through the [facility] department. MEDICATIONS: Risks, benefits and alternatives of medications discussed with the patient, questions answered and consent obtained from patient. PSYCHOTHERAPY: Supportive psychotherapy provided MEDICAL: Per primary team DELIRIUM PRECAUTIONS: Please re-orient patient frequently, keep lights on during the day, and minimize benzodiazepines and opiates as these medications could worsen patient's confusion. MAINTENANCE DISPATCHER: DISPOSITION: Do Not Recommend acute inpatient psychiatric hospitalization at this time. Case discussed with Dr. Naranjo who agrees with current disposition LEGAL STATUS: 1013 rescinded FOLLOW-UP: Will sign off Thank you for the consult. Please contact with any questions and/or concerns. Pt will be discharged as recommendation Critical care attestation.: If time is entered above; I have spent that time in minutes in the direct care of this critically ill patient, excluding procedure time. ED Disposition Is pt being admited?: No Does the pt Need Aspirin: No Time of Disposition: 11:13
[2020-09-03 00:05] LABS: BUN/Creatinine Ratio 14; Blood Urea Nitrogen 15 mg/dL (9-20); Calcium 8.9 mg/dL (8.4-10.2); Hemolysis Index 7
[2020-09-03 00:06] LABS: Eosinophils # (Auto) 0.1 K/mm3 (0.0-0.4); Eosinophils % (Auto) 1.7 % (0.0-4.3); Hematocrit 40.8 % (35.5-45.6); Hemoglobin 13.3 gm/dl (11.8-15.2); Lymphocytes # (Auto) 2.5 K/mm3 (1.2-5.4); Mean Corpuscular HGB Conc 33 % (32-34); Mean Corpuscular Volume 86 fl (84-94); Monocytes # (Auto) 0.5 K/mm3 (0.0-0.8); Monocytes % (Auto) 8.3 % (0.0-7.3); Platelet Count 221 K/mm3 (140-440); Red Blood Count 4.73 M/mm3 (3.65-5.03); Red Cell Distribution Width 13.5 % (13.2-15.2)
[2020-09-03 01:20] LABS: Bilirubin,Urine NEG (Negative); Blood,Urine NEG (Negative); Color,Urine Yellow (Yellow); Mucus,Urine 2+ /HPF
[2020-09-03 01:26] LABS: Amphetamine Screen,Urine PRESUMPTIVE NEGATIVE; Benzodiazepines Screen,Urine PRESUMPTIVE NEGATIVE; Cannabinoid Screen,Urine PRESUMPTIVE POSITIVE; Cocaine Screen,Urine PRESUMPTIVE NEGATIVE; Methadone Screen,Urine PRESUMPTIVE NEGATIVE; Opiate Screen,Urine PRESUMPTIVE NEGATIVE
[2020-09-03 08:17] VITALS: BP 106/63
--- NOTE | 2020-09-03 08:54 | Consultation ---
History of Present Illness - Reason for Consult Consult date: 09/03/20 Reason for consult: MHE Requesting physician: FLORENTINO HALE - History of Present Psychiatric Illness Per ED Provider: Patient is 25 years old male with history of schizophrenia. Patient presented to the ER stating that he is depressed and he is suicidal. When asked further about if he has any plan patient said he does not have a plan. Patient denied any suicidal attempt before. Patient also denied any homicidal ideation. No visual or auditory hallucination. Psych HPI Patient is a 25-year-old single unemployed -[place] male who is currently homeless with past psychiatric history of bipolar who presents today with chief complaint of homicidal ideation. Patient reported he is messed up upstairs in his brain from prior drug use, and is homicidal due to his homelessness, unemployment and denies no other reason for being homicidal. He denies being suicidal. PAST PSYCHIATRIC HISTORY Diagnoses: schizophrenia, bipolar Suicide attempts or Self-harm behavior: Denies Prior psychiatric hospitalizations: Yes Substance Abuse history: Crack, meth, THC Previous psychiatric medications tried: unable to recall Outpatient treatment: not in a long time PAST MEDICAL HISTORY: None reported Family Psychiatric History: None reported or documented SOCIAL HISTORY Marital Status: Single Living Arrangements: Homeless Employment Status: Unemployed Access to guns/weapons: Denies Education: 11th grade History of Abuse: Denies Legal History: none reported REVIEW OF SYSTEMS Constitutional: Negative for weight loss ENT: Negative for stridor Respiratory: Negative for cough or hemoptysis All other systems reviewed and are negative MENTAL STATUS EXAMINATION General Appearance and Behavior: Age appropriate, good hygiene, wearing appropriate clothes, poor eye contact Cooperation: Participating/engaged Psychomotor Behavior: Psychomotor normal Mood: "just okay" Affect and affective range: congruent with stated mood Thought Process: illogical Thought Content: hallucinations, homicidal thoughts Speech: Normal rate, volume and rhythm Suicidal Ideation: Denies Homicidal Ideation: Yes Hallucinations: A/V Delusions: None elicited Impulse Control: Impaired Insight and Judgment: impaired insight and judgment Memory: Limited Attention: Limited Orientation: Alert, oriented Assessment and Plan - Psychiatric problem (1) Bipolar 1 disorder, manic, mild Current Visit: Yes Status: Acute F31.11 Treatment Plan Patient informed of social resources available for homelessness versus assisted in programs to enable patient to become more independent through the [facility] department. MEDICATIONS: Risks, benefits and alternatives of medications discussed with the patient, questions answered and consent obtained from patient. PSYCHOTHERAPY: Supportive psychotherapy provided MEDICAL: Per primary team DELIRIUM PRECAUTIONS: Please re-orient patient frequently, keep lights on during the day, and minimize benzodiazepines and opiates as these medications could worsen patient's confusion. GROUNDS PERSON: DISPOSITION: Do Not Recommend acute inpatient psychiatric hospitalization at this time. Case discussed with Dr. Naranjo who agrees with current disposition LEGAL STATUS: 1013 rescinded FOLLOW-UP: Will sign off Thank you for the consult. Please contact with any questions and/or concerns. Medications and Allergies Allergies Allergy/AdvReac Type Severity Reaction Status Date / Time No Known Allergies Allergy Unverified 04/12/19 10:32 Home Medications Medication Instructions Recorded Confirmed Last Taken Type No Known Home Medications [No 09/03/20 09/03/20 Unknown History Reported Home Medications] Mental Status Exam - Vital signs Last Vital Signs Temp 98.5 F 09/03/20 08:15 Pulse 101 H 09/03/20 08:15 Resp 18 09/03/20 08:15 BP 106/63 09/03/20 08:15 Pulse Ox 98 09/03/20 08:15 Results Result Diagrams: 09/02/20 22:56 09/02/20 22:56 Abnormal lab results 09/02/20 09/02/20 09/02/20 Range/Units 22:56 22:56 22:56 Lymph % (Auto) 41.0 H (13.4-35.0) % [place] % (Auto) 8.3 H (0.0-7.3) % Glucose 72 L (75-100) mg/dL Ur Specific [place] (1.003-1.030) Salicylates < 0.3 L (2.8-20.0) mg/dL Acetaminophen (10.0-30.0) ug/mL 09/02/20 09/02/20 Range/Units 22:56 Unknown Lymph % (Auto) (13.4-35.0) % [place] % (Auto) (0.0-7.3) % Glucose (75-100) mg/dL Ur Specific [place] 1.032 H (1.003-1.030) Salicylates (2.8-20.0) mg/dL Acetaminophen 5.0 L (10.0-30.0) ug/mL All other labs normal. Assessment and Plan - Psychiatric problem (1) Bipolar 1 disorder, manic, mild Current Visit: Yes Status: Acute
== END 2020-09-03 12:13 | disposition home or self-care (01) ==
LOC: ED 22:08
DX: R45.851 Suicidal ideations (principal); F31.11 Bipolar disorder, current episode manic without psychotic features, mild; F12.90 Cannabis use, unspecified, uncomplicated; Z59.0 Homelessness
CPT/HCPCS: 36415; 80048; 80307; 80320; 81001; 85025; G0480

== ENCOUNTER 2020-10-25 01:14 | Emergency (ER) | payer SELFPAY ==
--- NOTE | 2020-10-25 02:06 | Emergency Department Report ---
HPI - General Chief Complaint: Psych Time Seen by Provider: 10/25/20 01:43 - HPI HPI: This is a 25-year-old male who presents to the emergency department for a psychiatric evaluation as the patient says that he is feeling homicidal towards "people on the street." The patient also admits to being "high as hell" on crack cocaine. Patient denies having any diagnosed psychiatric conditions, but the patient was seen here in August and records show that there is some history of schizophrenia. The patient denies any current hallucinations and denies any suicidal ideations. He denies any past medical history. Patient says that he chose to come in to be seen to this evening and took a ride share to the hospital. ED Past Medical Hx - Past Medical History Hx Psychiatric Treatment: Yes (SCHIZOPHrENIA AND DEPRESSION) Additional medical history: CHRONIC BACK PAIN - Surgical History Past Surgical History?: No - Social History Smoking Status: Never Smoker Substance Use Type: None - Medications Home Medications: Home Medications Medication Instructions Recorded Confirmed Last Taken Type No Known Home Medications [No 09/03/20 10/25/20 Unknown History Reported Home Medications] ED Review of Systems ROS: Stated complaint: HOMICIDAL/MH EVAL Other details as noted in HPI Comment: All other systems reviewed and negative Constitutional: denies: chills, fever Respiratory: denies: cough, shortness of breath Cardiovascular: denies: chest pain, palpitations Gastrointestinal: denies: abdominal pain, vomiting Musculoskeletal: denies: back pain, arthralgia Neurological: denies: headache, weakness Psychiatric: homicidal thoughts. denies: auditory hallucinations, visual hallucinations, suicidal thoughts Physical Exam - Physical Exam Vital Signs: Vital Signs 10/25/20 01:20 Temperature 98.1 F Pulse Rate 69 Respiratory 16 Rate Blood Pressure 129/74 O2 Sat by Pulse 100 Oximetry Physical Exam: GENERAL: The patient is well-developed well-nourished. HENT: Normocephalic. Atraumatic. Patient has moist mucous membranes. EYES: Extraocular motions are intact. NECK: Supple. Trachea is midline. CHEST/LUNGS: Clear to auscultation. There is no respiratory distress noted. HEART/CARDIOVASCULAR: Regular. There is no tachycardia. There is no murmur. ABDOMEN: Abdomen is soft, nontender. Patient has normal bowel sounds. SKIN: Skin is warm and dry. NEURO: The patient is awake, alert, and oriented. The patient is cooperative. Normal speech. MUSCULOSKELETAL: There is no tenderness or deformity. There is no limitation range of motion. ED Course Vital Signs 10/25/20 01:20 Temperature 98.1 F Pulse Rate 69 Respiratory 16 Rate Blood Pressure 129/74 O2 Sat by Pulse 100 Oximetry ED Medical Decision Making - Lab Data Result diagrams: 10/25/20 01:38 10/25/20 01:38 Lab Results 10/25/20 10/25/20 10/25/20 Range/Units 01:38 01:38 01:38 WBC (4.5-11.0) K/mm3 RBC (3.65-5.03) M/mm3 Hgb (11.8-15.2) gm/dl Hct (35.5-45.6) % MCV (84-94) fl MCH (28-32) pg MCHC (32-34) % RDW (13.2-15.2) % Plt Count (140-440) K/mm3 Lymph % (Auto) (13.4-35.0) % [place] % (Auto) (0.0-7.3) % Eos % (Auto) (0.0-4.3) % Baso % (Auto) (0.0-1.8) % Lymph # (Auto) (1.2-5.4) K/mm3 [place] # (Auto) (0.0-0.8) K/mm3 Eos # (Auto) (0.0-0.4) K/mm3 Baso # (Auto) (0.0-0.1) K/mm3 Seg Neutrophils % (40.0-70.0) % Seg Neutrophils # (1.8-7.7) K/mm3 Sodium (137-145) mmol/L Potassium (3.6-5.0) mmol/L Chloride (98-107) mmol/L Carbon Dioxide (22-30) mmol/L Anion Gap mmol/L BUN (9-20) mg/dL Creatinine (0.8-1.3) mg/dL Estimated GFR ml/min BUN/Creatinine Ratio % Glucose (75-100) mg/dL Calcium (8.4-10.2) mg/dL Urine Color Straw (Yellow) Urine Turbidity Clear (Clear) Urine pH 7.0 (5.0-7.0) Ur Specific [place] 1.010 (1.003-1.030) Urine Protein <15 mg/dl (Negative) mg/dL Urine Glucose (UA) Neg (Negative) mg/dL Urine Ketones Neg (Negative) mg/dL Urine Blood Neg (Negative) Urine Nitrite Neg (Negative) Urine Bilirubin Neg (Negative) Urine Urobilinogen < 2.0 (<2.0) mg/dL Ur Leukocyte Esterase Neg (Negative) Urine WBC (Auto) < 1.0 (0.0-6.0) /HPF Urine RBC (Auto) 1.0 (0.0-6.0) /HPF Salicylates < 0.3 L (2.8-20.0) mg/dL Urine Opiates Screen Urine Methadone Screen Acetaminophen 5.0 L (10.0-30.0) ug/mL Ur Barbiturates Screen Ur Phencyclidine Scrn Ur Amphetamines Screen U Benzodiazepines Scrn Urine Cocaine Screen U Marijuana (THC) Screen Plasma/Serum Alcohol (0-0.07) % 10/25/20 10/25/20 10/25/20 Range/Units 01:38 01:38 01:38 WBC (4.5-11.0) K/mm3 RBC (3.65-5.03) M/mm3 Hgb (11.8-15.2) gm/dl Hct (35.5-45.6) % MCV (84-94) fl MCH (28-32) pg MCHC (32-34) % RDW (13.2-15.2) % Plt Count (140-440) K/mm3 Lymph % (Auto) (13.4-35.0) % [place] % (Auto) (0.0-7.3) % Eos % (Auto) (0.0-4.3) % Baso % (Auto) (0.0-1.8) % Lymph # (Auto) (1.2-5.4) K/mm3 [place] # (Auto) (0.0-0.8) K/mm3 Eos # (Auto) (0.0-0.4) K/mm3 Baso # (Auto) (0.0-0.1) K/mm3 Seg Neutrophils % (40.0-70.0) % Seg Neutrophils # (1.8-7.7) K/mm3 Sodium 139 (137-145) mmol/L Potassium 3.7 (3.6-5.0) mmol/L Chloride 101.9 (98-107) mmol/L Carbon Dioxide 26 (22-30) mmol/L Anion Gap 15 mmol/L BUN 7 L (9-20) mg/dL Creatinine 0.9 (0.8-1.3) mg/dL Estimated GFR > 60 ml/min BUN/Creatinine Ratio 8 % Glucose 78 (75-100) mg/dL Calcium 8.8 (8.4-10.2) mg/dL Urine Color (Yellow) Urine Turbidity (Clear) Urine pH (5.0-7.0) Ur Specific [place] (1.003-1.030) Urine Protein (Negative) mg/dL Urine Glucose (UA) (Negative) mg/dL Urine Ketones (Negative) mg/dL Urine Blood (Negative) Urine Nitrite (Negative) Urine Bilirubin (Negative) Urine Urobilinogen (<2.0) mg/dL Ur Leukocyte Esterase (Negative) Urine WBC (Auto) (0.0-6.0) /HPF Urine RBC (Auto) (0.0-6.0) /HPF Salicylates (2.8-20.0) mg/dL Urine Opiates Screen Presumptive negative Urine Methadone Screen Presumptive negative Acetaminophen (10.0-30.0) ug/mL Ur Barbiturates Screen Presumptive negative Ur Phencyclidine Scrn Presumptive negative Ur Amphetamines Screen Presumptive negative U Benzodiazepines Scrn Presumptive negative Urine Cocaine Screen Presumptive positive U Marijuana (THC) Screen Presumptive positive Plasma/Serum Alcohol < 0.01 (0-0.07) % 10/25/20 Range/Units 01:38 WBC 7.4 (4.5-11.0) K/mm3 RBC 4.87 (3.65-5.03) M/mm3 Hgb 13.6 (11.8-15.2) gm/dl Hct 42.3 (35.5-45.6) % MCV 87 (84-94) fl MCH 28 (28-32) pg MCHC 32 (32-34) % RDW 14.0 (13.2-15.2) % Plt Count 238 (140-440) K/mm3 Lymph % (Auto) 35.2 H (13.4-35.0) % [place] % (Auto) 9.2 H (0.0-7.3) % Eos % (Auto) 0.3 (0.0-4.3) % Baso % (Auto) 0.7 (0.0-1.8) % Lymph # (Auto) 2.6 (1.2-5.4) K/mm3 [place] # (Auto) 0.7 (0.0-0.8) K/mm3 Eos # (Auto) 0.0 (0.0-0.4) K/mm3 Baso # (Auto) 0.1 (0.0-0.1) K/mm3 Seg Neutrophils % 54.6 (40.0-70.0) % Seg Neutrophils # 4.0 (1.8-7.7) K/mm3 Sodium (137-145) mmol/L Potassium (3.6-5.0) mmol/L Chloride (98-107) mmol/L Carbon Dioxide (22-30) mmol/L Anion Gap mmol/L BUN (9-20) mg/dL Creatinine (0.8-1.3) mg/dL Estimated GFR ml/min BUN/Creatinine Ratio % Glucose (75-100) mg/dL Calcium (8.4-10.2) mg/dL Urine Color (Yellow) Urine Turbidity (Clear) Urine pH (5.0-7.0) Ur Specific [place] (1.003-1.030) Urine Protein (Negative) mg/dL Urine Glucose (UA) (Negative) mg/dL Urine Ketones (Negative) mg/dL Urine Blood (Negative) Urine Nitrite (Negative) Urine Bilirubin (Negative) Urine Urobilinogen (<2.0) mg/dL Ur Leukocyte Esterase (Negative) Urine WBC (Auto) (0.0-6.0) /HPF Urine RBC (Auto) (0.0-6.0) /HPF Salicylates (2.8-20.0) mg/dL Urine Opiates Screen Urine Methadone Screen Acetaminophen (10.0-30.0) ug/mL Ur Barbiturates Screen Ur Phencyclidine Scrn Ur Amphetamines Screen U Benzodiazepines Scrn Urine Cocaine Screen U Marijuana (THC) Screen Plasma/Serum Alcohol (0-0.07) % - Medical Decision Making This patient presents to the emergency department with a complaint of homicidal ideations and admission of using crack cocaine. Despite the illicit drug use, the patient is resting comfortably, calm and oriented. However he does deny having any previous psychiatric history and the patient was seen here about 1 month ago for suicidal ideations and schizophrenia. The patient has been made a 1013 and placed on an ED hold secondary to the homicidal ideations. Vital signs have been reassuring throughout his ED course thus far. Labs have been mostly unremarkable including CBC, metabolic panel, urinalysis, blood alcohol level, but UDS is positive for cocaine and marijuana. The patient appears medically cleared for psychiatric placement. He will be seen by the psychiatric assessment team in the morning for further disposition. Critical Care Time: No Critical care attestation.: If time is entered above; I have spent that time in minutes in the direct care of this critically ill patient, excluding procedure time. ED Disposition Clinical Impression: Homicidal ideations, Cocaine use Disposition: DC/TX-65 PSY HOSP/PSY UNIT Is pt being admited?: No Condition: Stable Time of Disposition: 03:01
[2020-10-25 02:07] LABS: Basophils # (Auto) 0.1 K/mm3 (0.0-0.1); Basophils % (Auto) 0.7 % (0.0-1.8); Eosinophils % (Auto) 0.3 % (0.0-4.3); Hematocrit 42.3 % (35.5-45.6); Hemoglobin 13.6 gm/dl (11.8-15.2); Lymphocytes # (Auto) 2.6 K/mm3 (1.2-5.4); Lymphocytes % (Auto) 35.2 % (13.4-35.0); Mean Corpuscular HGB Conc 32 % (32-34); Mean Corpuscular Volume 87 fl (84-94); Monocytes # (Auto) 0.7 K/mm3 (0.0-0.8); Monocytes % (Auto) 9.2 % (0.0-7.3); Platelet Count 238 K/mm3 (140-440); Red Blood Count 4.87 M/mm3 (3.65-5.03)
[2020-10-25 02:15] LABS: BUN/Creatinine Ratio 8; Bilirubin,Urine NEG (Negative); Blood Urea Nitrogen 7 mg/dL (9-20); Blood,Urine NEG (Negative); Calcium 8.8 mg/dL (8.4-10.2); Color,Urine Straw (Yellow); Hemolysis Index 11; Protein,Urine <15 mg/dL mg/dL (Negative); Urobilinogen,Urine < 2.0 mg/dL (<2.0); WBC,Urine < 1.0 /HPF (0.0-6.0)
[2020-10-25 02:22] LABS: Amphetamine Screen,Urine PRESUMPTIVE NEGATIVE; Benzodiazepines Screen,Urine PRESUMPTIVE NEGATIVE; Cannabinoid Screen,Urine PRESUMPTIVE POSITIVE; Cocaine Screen,Urine PRESUMPTIVE POSITIVE; Methadone Screen,Urine PRESUMPTIVE NEGATIVE; Opiate Screen,Urine PRESUMPTIVE NEGATIVE
--- NOTE | 2020-10-25 10:36 | Consultation ---
History of Present Illness - Reason for Consult Consult date: 10/25/20 Reason for consult: homicidal, agitated - History of Present Psychiatric Illness Per ED Note: Patient is 25 years old male with history of schizophrenia. Patient presented to the ER stating that he is depressed and he is suicidal. When asked further about if he has any plan patient said he does not have a plan. Patient denied any suicidal attempt before. Patient also denied any h omicidal ideation. No visual or auditory hallucination. Naren King is a 25y/o male patient who was seen today. The patient says he came to ER because "we were out there fck*ng around on crack." He says "I'm good now." He says "I was feeling homicidal at the time on the drugs." The patient denies SI/HI at present. He also denies hallucinations of any kind. He states he has a history of bipolar and schizophrenia. The patient says "I'm good, I just gotta get off the drugs." PAST PSYCHIATRIC HISTORY Diagnoses: schizophrenia, bipolar Suicide attempts or Self-harm behavior: Denies Prior psychiatric hospitalizations: Yes Substance Abuse history: Crack, meth, THC Previous psychiatric medications tried: unable to recall Outpatient treatment: not in a long time PAST MEDICAL HISTORY: None reported Family Psychiatric History: None reported or documented SOCIAL HISTORY Marital Status: Single Living Arrangements: Homeless Employment Status: Unemployed Access to guns/weapons: Denies Education: 11th grade History of Abuse: Denies Legal History: none reported REVIEW OF SYSTEMS Constitutional: Negative for weight loss ENT: Negative for stridor Respiratory: Negative for cough or hemoptysis All other systems reviewed and are negative MENTAL STATUS EXAMINATION General Appearance and Behavior: Age appropriate, good hygiene, wearing appropr iate clothes, poor eye contact Cooperation: Participating/engaged Psychomotor Behavior: Psychomotor normal Mood: "I'm good" Affect and affective range: congruent with stated mood Thought Process: logical Thought Content: None Speech: Normal rate, volume and rhythm Suicidal Ideation: Denies Homicidal Ideation: Denies Hallucinations: Denies Delusions: None elicited Impulse Control: Unimpaired Insight and Judgment: Limited insight and judgment Memory: Limited Attention: Limited Orientation: Alert, oriented Assessment and Plan (1) Cocaine Dependence (2) Substance Induced Mood Disorder Current Visit: Yes Status: Acute Treatment Plan d/c 1013 No medications at this time Risks, benefits and alternatives of medications discussed with the patient, questions answered and consent obtained from patient. PSYCHOTHERAPY: Supportive psychotherapy provided MEDICAL: Per primary team DELIRIUM PRECAUTIONS: Please re-orient patient frequently, keep lights on during the day, and minimize benzodiazepines and opiates as these medications could worsen patient's confusion. TORCH SOLDERER: DISPOSITION: Do Not Recommend acute inpatient psychiatric hospitalization at this time. The patient understands that if SI/HI or any fear of endangerment returns he is to seek immediate assistance including the crisis hotline, 911/ER. The patient is to abstain from all illicit drug use. He is to follow up with outpatient psych in 7 to 14 days upon discharge The wildland fire operations specialist is to give safety plan, outpatient resources for psych, CBT, shelters and drug rehab. FOLLOW-UP: Will sign off Thank you for the consult. Please contact with any questions and/or concerns. Case discussed with Dr. Naranjo who agrees with current disposition Medications and Allergies Allergies Allergy/AdvReac Type Severity Reaction Status Date / Time No Known Allergies Allergy Unverified 04/12/19 10:32 Home Medications Medication Instructions Recorded Confirmed Last Taken Type No Known Home Medications [No 09/03/20 10/25/20 Unknown History Reported Home Medications] Mental Status Exam - Vital signs Last Vital Signs Temp 98.1 F 10/25/20 01:20 Pulse 69 10/25/20 01:20 Resp 16 10/25/20 01:20 BP 129/74 10/25/20 01:20 Pulse Ox 100 10/25/20 01:20 Results Result Diagrams: 10/25/20 01:38 10/25/20 01:38 Abnormal lab results 10/25/20 10/25/20 10/25/20 Range/Units 01:38 01:38 01:38 Lymph % (Auto) (13.4-35.0) % [place] % (Auto) (0.0-7.3) % BUN 7 L (9-20) mg/dL Salicylates < 0.3 L (2.8-20.0) mg/dL Acetaminophen 5.0 L (10.0-30.0) ug/mL 10/25/20 Range/Units 01:38 Lymph % (Auto) 35.2 H (13.4-35.0) % [place] % (Auto) 9.2 H (0.0-7.3) % BUN (9-20) mg/dL Salicylates (2.8-20.0) mg/dL Acetaminophen (10.0-30.0) ug/mL All other labs normal.
[2020-10-25] MEDS ORDERED: hydrALAZINE 20 MG/1 ML INJ IV ONE (12:10)
[2020-10-25 13:23] VITALS: BP 118/84
== END 2020-10-25 13:35 ==
LOC: ED 01:14
DX: R45.850 Homicidal ideations (principal); F14.10 Cocaine abuse, uncomplicated; F20.9 Schizophrenia, unspecified; F32.9 Major depressive disorder, single episode, unspecified; Z20.822 Contact with and (suspected) exposure to COVID-19
CPT/HCPCS: 36415; 80048; 80307; 81001; 85025; 99284; U0003; 80320; G0480

== ENCOUNTER 2020-11-16 23:51 | Emergency (ER) | payer SELFPAY ==
--- NOTE | 2020-11-17 00:43 | Emergency Department Report ---
HPI - General Chief Complaint: Psych Time Seen by Provider: 11/17/20 00:34 - HPI HPI: Room 12 E The patient is a 25-year-old male present with a chief complaint of homicidal ideation. Patient states for the past 2 days he has felt homicidal towards "se lect few" individuals. Patient would not name has had these homicidal thoughts about the only listed them as some of my "homies." Patient denies any attempts at harming him when asked he states "not yet." Patient also states that he is homeless. Patient denies suicidal ideation ED Past Medical Hx - Past Medical History Hx Psychiatric Treatment: Yes (SCHIZOPHRENIA AND DEPRESSION) Additional medical history: CHRONIC BACK PAIN - Surgical History Past Surgical History?: No - Family History Family history: no significant - Social History Smoking Status: Never Smoker Substance Use Type: None - Medications Home Medications: Home Medications Medication Instructions Recorded Confirmed Last Taken Type No Known Home Medications [No 09/03/20 10/25/20 Unknown History Reported Home Medications] ED Review of Systems ROS: Stated complaint: HOMICIDAL THOUGHTS/MENTAL EVALUATION Other details as noted in HPI Constitutional: no symptoms reported Eyes: denies: eye pain ENT: denies: throat pain Respiratory: no symptoms reported Cardiovascular: denies: chest pain Endocrine: no symptoms reported Gastrointestinal: denies: abdominal pain Genitourinary: denies: dysuria Neurological: denies: headache Psychiatric: homicidal thoughts. denies: suicidal thoughts Physical Exam - Physical Exam Vital Signs: Vital Signs 11/17/20 00:06 Temperature 98.3 F Pulse Rate 74 Respiratory 18 Rate Blood Pressure 149/94 [Left] O2 Sat by Pulse 99 Oximetry Physical Exam: GENERAL: The patient is well-developed well-nourished male sitting in chair not appearing to be in acute distress. [] HEENT: Normocephalic. Atraumatic. Extraocular motions are intact. Patient has moist mucous membranes. NECK: Supple. Trachea midline CHEST/LUNGS: Clear to auscultation. There is no respiratory distress noted. HEART/CARDIOVASCULAR: Regular. There is no tachycardia. There is no gallop rub or murmur. ABDOMEN: Abdomen is soft, nontender. Patient has normal bowel sounds. There is no abdominal distention. SKIN: There is no rash. There is no edema. There is no diaphoresis. NEURO: The patient is awake, alert, and oriented. The patient is cooperative. The patient has no focal neurologic deficits. The patient has normal speech MUSCULOSKELETAL: There is no evidence of acute injury. ED Course Vital Signs 11/17/20 00:06 Temperature 98.3 F Pulse Rate 74 Respiratory 18 Rate Blood Pressure 149/94 [Left] O2 Sat by Pulse 99 Oximetry ED Medical Decision Making - Differential Diagnosis Homicidal ideation, schizophrenia, homelessness Critical care attestation.: If time is entered above; I have spent that time in minutes in the direct care of this critically ill patient, excluding procedure time. ED Disposition Clinical Impression: Homicidal ideation Disposition: DC/TX-65 PSY HOSP/PSY UNIT Is pt being admited?: No Does the pt Need Aspirin: No Condition: Stable Time of Disposition: 00:43 (Awaiting acceptance)
[2020-11-17 00:51] LABS: Hematocrit 41.3 % (35.5-45.6); Hemoglobin 13.8 gm/dl (11.8-15.2); Mean Corpuscular HGB Conc 34 % (32-34); Mean Corpuscular Volume 86 fl (84-94); Platelet Count 183 K/mm3 (140-440); Red Blood Count 4.79 M/mm3 (3.65-5.03); Red Cell Distribution Width 13.9 % (13.2-15.2)
[2020-11-17 01:18] LABS: BUN/Creatinine Ratio 10; Blood Urea Nitrogen 11 mg/dL (9-20); Calcium 8.8 mg/dL (8.4-10.2); Hemolysis Index 5
[2020-11-17 03:39] LABS: Total Cells Counted 100
[2020-11-17 03:40] LABS: Anisocytosis 1+
[2020-11-17 03:41] LABS: Platelet Estimate Consistent w Auto
[2020-11-17] MEDS ORDERED: INSULIN REGULAR, HUMAN 100 UNITS/1 ML IV ONE (08:28)
[2020-11-17 08:52] VITALS: BP 109/63
[2020-11-17 08:53] LABS: Amphetamine Screen,Urine Negative; Benzodiazepines Screen,Urine Negative; Cocaine Screen,Urine Negative; Methadone Screen,Urine Negative; Opiate Screen,Urine Negative
[2020-11-17 09:02] LABS: Bilirubin,Urine NEG (Negative); Blood,Urine NEG (Negative); Color,Urine Yellow (Yellow); Mucus,Urine FEW /HPF; Urobilinogen,Urine < 2.0 mg/dL (<2.0)
[2020-11-17 09:09] LABS: Cannabinoid Screen,Urine Positive
--- NOTE | 2020-11-17 10:59 | Consultation ---
History of Present Illness - Reason for Consult Consult date: 11/17/20 Reason for consult: homicidal thoughs - History of Present Psychiatric Illness Naren King is a 25y/o male patient who is known to me. He came to ER stating he was having homicidal thoughts. This is his presenting complaint when he comes. During my interview the patient is calm and cooperative. He states he's here for "family issues." The patient says "I be letting my family drive me." He says "sometimes I feel like they are teaming up on me." When asking the patient did he still feel this way, "he says naw, I feel calm now, I just need to stop letting them get to me." The patient says he is homeless. He denies hallucinations of any kind. He has a history of drug use, but denies anything outside of "weed." He says "not recent" with cocaine. PAST PSYCHIATRIC HISTORY Diagnoses: schizophrenia, bipolar Suicide attempts or Self-harm behavior: Denies Prior psychiatric hospitalizations: Yes Substance Abuse history: Crack, meth, THC Previous psychiatric medications tried: unable to recall Outpatient treatment: not in a long time PAST MEDICAL HISTORY: None reported Family Psychiatric History: None reported or documented SOCIAL HISTORY Marital Status: Single Living Arrangements: Homeless Employment Status: Unemployed Access to guns/weapons: Denies Education: 11th grade History of Abuse: Denies Legal History: none reported REVIEW OF SYSTEMS Constitutional: Negative for weight loss ENT: Negative for stridor Respiratory: Negative for cough or hemoptysis All other systems reviewed and are negative MENTAL STATUS EXAMINATION General Appearance and Behavior: Age appropriate, good hygiene, wearing appropriate clothes, good eye contact Cooperation: Participating/engaged Psychomotor Behavior: Psychomotor normal Mood: "I'm good" Affect and affective range: congruent with stated mood Thought Process: logical Thought Content: None Speech: Normal rate, volume and rhythm Suicidal Ideation: Denies Homicidal Ideation: Denies Hallucinations: Denies Delusions: None elicited Impulse Control: Unimpaired Insight and Judgment: Limited insight and judgment Memory: Limited Attention: Limited Orientation: Alert, oriented Assessment and Plan Bipolar Disorder Current Visit: Yes Status: Acute Treatment Plan Depakote DR 125mg po BID Risks, benefits and alternatives of medications discussed with the patient, questions answered and consent obtained from patient. PSYCHOTHERAPY: Supportive psychotherapy provided MEDICAL: Per primary team DELIRIUM PRECAUTIONS: Please re-orient patient frequently, keep lights on during the day, and minimize benzodiazepines and opiates as these medications could worsen patient's confusion. BAKER TEST: Defer to primary DISPOSITION: Do Not Recommend acute inpatient psychiatric hospitalization at this time. The patient understands that if SI/HI or any fear of endangerment returns he is to seek immediate assistance including the crisis hotline, 911/ER. The patient is to abstain from all illicit drug use. He is to follow up with outpatient psych in 7 to 14 days upon discharge The valet runner is to give safety plan, outpatient resources for psych, CBT, shelters and drug rehab. FOLLOW-UP: Will sign off Thank you for the consult. Please contact with any questions and/or concerns. Case discussed with Dr. Naranjo who agrees with current disposition Medications and Allergies Allergies Allergy/AdvReac Type Severity Reaction Status Date / Time No Known Allergies Allergy Unverified 04/12/19 10:32 Home Medications Medication Instructions Recorded Confirmed Last Taken Type Divalproex [Radha DYE] 125 mg PO BID #60 tablet 11/17/20 Unknown Rx Mental Status Exam - Vital signs Last Vital Signs Temp 98.3 F 11/17/20 08:51 Pulse 68 11/17/20 08:51 Resp 18 11/17/20 08:51 BP 109/63 11/17/20 08:51 Pulse Ox 98 11/17/20 08:51 Results Result Diagrams: 11/17/20 00:40 11/17/20 00:40 Abnormal lab results 11/17/20 11/17/20 11/17/20 Range/Units 00:40 00:40 00:40 Seg Neuts % (Manual) 30.0 L (40.0-70.0) % Lymphocytes % (Manual) 64.0 H (13.4-35.0) % Seg Neutrophils # Man 1.7 L (1.8-7.7) K/mm3 Salicylates < 0.3 L (2.8-20.0) mg/dL Acetaminophen 5.0 L (10.0-30.0) ug/mL All other labs normal.
== END 2020-11-17 12:15 | disposition home or self-care (01) ==
LOC: ED 23:51
DX: F20.9 Schizophrenia, unspecified (principal); F32.9 Major depressive disorder, single episode, unspecified; Z20.822 Contact with and (suspected) exposure to COVID-19
CPT/HCPCS: 36415; 80048; 80307; 81001; 85007; 85025; 99284; U0003; 80320; G0480

== ENCOUNTER 2021-02-14 06:58 | Emergency (ER) | payer OTHER, SELFPAY ==
[2021-02-14 07:44] LABS: Basophils % (Auto) 0.7 % (0.0-1.8); Eosinophils % (Auto) 0.3 % (0.0-4.3); Hematocrit 43.2 % (35.5-45.6); Lymphocytes # (Auto) 1.9 K/mm3 (1.2-5.4); Lymphocytes % (Auto) 27.5 % (13.4-35.0); Mean Corpuscular HGB Conc 33 % (32-34); Mean Corpuscular Volume 86 fl (84-94); Monocytes # (Auto) 0.6 K/mm3 (0.0-0.8); Monocytes % (Auto) 7.9 % (0.0-7.3); Platelet Count 228 K/mm3 (140-440); Red Blood Count 5.01 M/mm3 (3.65-5.03); Red Cell Distribution Width 14.3 % (13.2-15.2)
[2021-02-14 08:06] LABS: BUN/Creatinine Ratio 13; Blood Urea Nitrogen 13 mg/dL (9-20); Calcium 9.6 mg/dL (8.4-10.2); Hemolysis Index 3
--- NOTE | 2021-02-14 08:08 | Emergency Department Report ---
<HOLGER BARRAZA - Last Filed: 02/15/21 16:28> ED Psych HPI - General Chief Complaint: Psych Stated Complaint: MH EVAL/HOMICIDAL Time Seen by Provider: 02/14/21 08:03 - Related Data Previous Rx's Medication Instructions Recorded Last Taken Type Divalproex Dr [DepaKOTE DR] 125 mg PO BID #60 tablet 11/17/20 Unknown Rx Allergies Allergy/AdvReac Type Severity Reaction Status Date / Time No Known Allergies Allergy Unverified 04/12/19 10:32 ED Past Medical Hx - Medications Home Medications: Home Medications Medication Instructions Recorded Confirmed Last Taken Type Divalproex Dr [DepaKOTE DR] 125 mg PO BID #60 tablet 11/17/20 Unknown Rx ED Medical Decision Making - Lab Data Result diagrams: 02/14/21 07:32 02/14/21 07:32 - Medical Decision Making This gentleman was cleared by psychiatry to be discharged on yesterday. He refused discharge. Today patient is ready to be discharged. Patient was reevaluated again by psychiatry team today. Inpatient psychiatric hospitalization not recommended. ED Disposition Clinical Impression: Bipolar 1 disorder, manic, mild, Cocaine abuse Disposition: DC-01 TO HOME OR SELFCARE Is pt being admited?: No Does the pt Need Aspirin: No Condition: Stable Instructions: Bipolar 1 Disorder Additional Instructions: Professional and Agency Contacts To help [facility] (16/02) [place] Crisis Line: Suicide Prevention Line: Crisis Text Line: Text START to [phone] Emergency: 911 Outpatient [facility] Behavior[facility] Health Resources: [place]: [facility] [address], [place] [address] [facility] [address] [place] [address] Thursday thru Thursday - 8am - 5pm Call to schedule an assessment for mental health and substance abuse programs [facility] Address: [address] [place] [address] Thursday thru Thursday- 7am-2pm [facility] Address: [address] [place] [address] Thursday thru Thursday: 8:30AM-5PM Referrals: PRIMARY CARE, [Primary Care Provider] - 3-5 Days <ERIKA ARREDONDO - Last Filed: 02/20/21 06:35> ED Psych HPI - General Source: patient Mode of arrival: Ambulatory - History of Present Illness Initial Comments: 25-year-old male, history of schizophrenia, presents to ED for evaluation. Patient states someone put an witchcraft spell on him and now he wants to kill people. When asked if there was anyone in particular, patient states he would rather not say "her name." Patient instead asks, "Can I tell you how I want to do it?" He then states that wants to shoot her. Patient denies any suicidal ideations. He reports auditory hallucinations. He denies any drug use. Patient states he is not currently on any psychiatric medications. Complaint: other -: unknown Associated Psychiatric Symptoms: homicidal ideation, auditory hallucinations Improves With: none Worsens With: none Context: not taking psychiatric Associated Symptoms: denies other symptoms Treatments Prior to Arrival: none ED Review of Systems ROS: Stated complaint: MH EVAL/HOMICIDAL Other details as noted in HPI Comment: All other systems reviewed and negative Psychiatric: auditory hallucinations, homicidal thoughts. denies: suicidal thoughts ED Past Medical Hx - Past Medical History Hx Psychiatric Treatment: Yes (SCHIZOPHRENIA AND DEPRESSION) Additional medical history: CHRONIC BACK PAIN - Surgical History Past Surgical History?: No - Social History Smoking Status: Never Smoker Substance Use Type: None ED Physical Exam - General Limitations: No Limitations General appearance: alert, in no apparent distress - Head Head exam: Present: atraumatic, normocephalic - Eye Eye exam: Present: normal appearance, EOMI - ENT ENT exam: Present: mucous membranes moist - Neck Neck exam: Present: normal inspection - Respiratory Respiratory exam: Present: normal lung sounds bilaterally. Absent: respiratory distress - Cardiovascular Cardiovascular Exam: Present: regular rate, normal rhythm - GI/Abdominal GI/Abdominal exam: Absent: distended - Extremities Exam Extremities exam: Present: normal inspection - Neurological Exam Neurological exam: Present: alert, oriented X3 - Psychiatric Psychiatric exam: Present: normal affect, normal mood - Skin Skin exam: Present: warm, dry, intact, normal color ED Course Vital Signs 02/14/21 02/14/21 02/14/21 07:21 09:26 20:15 Temperature 97.7 F 98.0 F 98.0 F Pulse Rate 72 90 72 Respiratory 18 20 16 Rate Blood Pressure 135/72 Blood Pressure 110/60 129/76 [Right] O2 Sat by Pulse 100 98 100 Oximetry 02/15/21 02/15/21 02:07 08:00 Temperature 97.4 F L 97.8 F Pulse Rate 74 74 Respiratory 16 18 Rate Blood Pressure Blood Pressure 132/74 128/70 [Right] O2 Sat by Pulse 100 99 Oximetry - Reevaluation(s) Reevaluation #1: 02/14/21 12:33 Patient seen and evaluated by psychiatry team. Patient is now denying any SI or HI. States he just needs therapy. 1013 has been rescinded. He will be discharged. Patient given outpatient resources. 02/14/21 13:40 Upon discharge, patient became irate that he was leaving. Patient is yelling and screaming, stating, "I said 3 things that should be able to get me admitted." Patient states the 3 things are that he has schizophrenia, he is homicidal, and he needs inpatient. Patient refusing to say who he is having homicidal thoughts about. Will undo discharge. Will medicate. ED Medical Decision Making - Lab Data Result diagrams: 02/14/21 07:32 02/14/21 07:32 Critical care attestation.: If time is entered above; I have spent that time in minutes in the direct care of this critically ill patient, excluding procedure time. ED Disposition Is pt being admited?: No
[2021-02-14] MEDS: POTASSIUM CHLORIDE ER 20 MEQ TAB PO ONE ×2 (08:56→09:02)
[2021-02-14] MEDS ORDERED: POTASSIUM CHLORIDE ER 20 MEQ TAB PO ONE (09:42)
[2021-02-14 09:43] LABS: Bilirubin,Urine NEG (Negative); Blood,Urine NEG (Negative); Calcium Oxalate Crystals,Urine 1+; Color,Urine Amber (Yellow); Mucus,Urine 3+ /HPF; RBC,Urine < 1.0 /HPF (0.0-6.0)
[2021-02-14 09:57] LABS: Amphetamine Screen,Urine Negative; Benzodiazepines Screen,Urine Negative; Methadone Screen,Urine Negative; Opiate Screen,Urine Negative
[2021-02-14 10:24] LABS: Cannabinoid Screen,Urine PRESUMPTIVE POSITIVE; Cocaine Screen,Urine PRESUMPTIVE POSITIVE
--- NOTE | 2021-02-14 11:08 | Consultation ---
History of Present Illness - Reason for Consult Consult date: 02/14/21 Reason for consult: HI - History of Present Psychiatric Illness 25y/o Naren King was seen today for homicidal ideations. The patient says his family is his trigger. He has a history of cocaine use and bipolar. The patient states he hasn't been taking his meds because he "doesn't want to take any med s." He also refused his potassium today. The patient says "that's negative. I'm not taking that." He says "why do I need meds to go somewhere." The patient then says "I'm just gone tell the truth. I'm not homicidal or suicidal, I just need therapy." I advised the patient that he can do therapy on an outpatient basis. The patient replied "I want to do it on inpatient. I don't have skills for outpatient therapy." He denies hallucinations of any kind. PAST PSYCHIATRIC HISTORY Diagnoses: schizophrenia, bipolar Suicide attempts or Self-harm behavior: Denies Prior psychiatric hospitalizations: Yes Substance Abuse history: Crack, meth, THC Previous psychiatric medications tried: unable to recall Outpatient treatment: not in a long time PAST MEDICAL HISTORY: None reported Family Psychiatric History: None reported or documented SOCIAL HISTORY Marital Status: Single Living Arrangements: Homeless Employment Status: Unemployed Access to guns/weapons: Denies Education: 11th grade History of Abuse: Denies Legal History: none reported REVIEW OF SYSTEMS Constitutional: Negative for weight loss ENT: Negative for stridor Respiratory: Negative for cough or hemoptysis All other systems reviewed and are negative MENTAL STATUS EXAMINATION General Appearance and Behavior: Age appropriate, good hygiene, wearing appropriate clothes, good eye contact Cooperation: Participating/engaged Psychomotor Behavior: Psychomotor normal Mood: "alright" Affect and affective range: congruent with stated mood Thought Process: goal oriented Thought Content: None at this Speech: Normal rate, volume and rhythm Suicidal Ideation: Denies Homicidal Ideation: Denies Delusions: None elicited Impulse Control: Impaired Insight and Judgment: impaired insight and judgment Memory: Limited Attention: Limited Orientation: Alert, oriented Assessment and Plan (1) Bipolar 1 disorder, manic, mild Current Visit: Yes Status: Acute F31.11 Treatment Plan Resume home medications Risks, benefits and alternatives of medications discussed with the patient, questions answered and consent obtained from patient. PSYCHOTHERAPY: Supportive psychotherapy provided MEDICAL: Per primary team DELIRIUM PRECAUTIONS: Please re-orient patient frequently, keep lights on during the day, and minimize benzodiazepines and opiates as these medications could worsen patient's confusion. 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 Case discussed with Dr. Naranjo who agrees with current disposition FOLLOW-UP: Will sign off Thank you for the consult. Please contact with any questions and/or concerns. Medications and Allergies Allergies Allergy/AdvReac Type Severity Reaction Status Date / Time No Known Allergies Allergy Unverified 04/12/19 10:32 Home Medications Medication Instructions Recorded Confirmed Last Taken Type Divalproex Dr [DepaKOTE DR] 125 mg PO BID #60 tablet 11/17/20 Unknown Rx Mental Status Exam - Vital signs Last Vital Signs Temp 98.0 F 02/14/21 09:26 Pulse 90 02/14/21 09:26 Resp 20 02/14/21 09:26 BP 110/60 02/14/21 09:26 Pulse Ox 98 02/14/21 09:26 Results Result Diagrams: 02/14/21 07:32 02/14/21 07:32 Abnormal lab results 02/14/21 02/14/21 02/14/21 Range/Units 07:32 07:32 07:32 [place] % (Auto) (0.0-7.3) % Potassium 3.2 L (3.6-5.0) mmol/L Ur Specific [place] (1.003-1.030) Salicylates < 0.3 L (2.8-20.0) mg/dL Acetaminophen 5.0 L (10.0-30.0) ug/mL 02/14/21 02/14/21 Range/Units 07:[address] [place] % (Auto) 7.9 H (0.0-7.3) % Potassium (3.6-5.0) mmol/L Ur Specific [place] 1.034 H (1.003-1.030) Salicylates (2.8-20.0) mg/dL Acetaminophen (10.0-30.0) ug/mL All other labs normal.
[2021-02-14] MEDS ORDERED: ZIPRASIDONE MESYLATE 20 MG VIAL IM ONE (13:33)
[2021-02-14] MEDS ORDERED: LORazepam 2 MG/ML VIAL IM ONE (13:34)
[2021-02-15 08:18] VITALS: BP 128/70
--- NOTE | 2021-02-15 09:32 | Progress Note ---
Subjective - Reason for Consult Consult date: 02/15/21 Reason for consult: Homicidal ideation - Chief Complaint Chief complaint: The patient was seen today. He reports doing well.The patient states sleep and appetite as good. He remains non receptive to psychotropic medication " I have tried all of them and they have bad side effects." The patient reports that he plans to move to [place]. He denies any current suicidal/homicidal thoughts and denies hallucinations. REVIEW OF SYSTEMS Constitutional: Negative for weight loss ENT: Negative for stridor Respiratory: Negative for cough or hemoptysis All other systems reviewed and are negative MENTAL STATUS EXAMINATION General Appearance and Behavior: Age appropriate, good hygiene, wearing appropriate clothes, good eye contact Cooperation: Participating/engaged Psychomotor Behavior: Psychomotor normal Mood: "alright" Affect and affective range: congruent with stated mood Thought Process: goal oriented Thought Content: None at this Speech: Normal rate, volume and rhythm Suicidal Ideation: Denies Homicidal Ideation: Denies Delusions: None elicited Impulse Control: Impaired Insight and Judgment: impaired insight and judgment Memory: Limited Attention: Limited Orientation: Alert, oriented Assessment and Plan (1) Bipolar 1 disorder, manic, mild Current Visit: Yes Status: Acute F31.11 Treatment Plan Resume home medications Risks, benefits and alternatives of medications discussed with the patient, questions answered and consent obtained from patient. PSYCHOTHERAPY: Supportive psychotherapy provided MEDICAL: Per primary team DELIRIUM PRECAUTIONS: Please re-orient patient frequently, keep lights on during the day, and minimize benzodiazepines and opiates as these medications could worsen patient's confusion. DEVELOPMENT TEAM LEAD: DISPOSITION: Do Not Recommend acute inpatient psychiatric hospitalization at this time. Case discussed with Dr. Naranjo who agrees with current disposition FOLLOW-UP: Will sign off Thank you for the consult. Please contact with any questions and/or concerns. Mental Status Exam - Vital signs Last Vital Signs Temp 97.8 F 02/15/21 08:00 Pulse 74 02/15/21 08:00 Resp 18 02/15/21 08:00 BP 128/70 02/15/21 08:00 Pulse Ox 99 02/15/21 08:00
== END 2021-02-15 12:45 | disposition home or self-care (01) ==
LOC: ED 06:58
DX: F31.11 Bipolar disorder, current episode manic without psychotic features, mild (principal); F14.10 Cocaine abuse, uncomplicated; F25.1 Schizoaffective disorder, depressive type; Z20.822 Contact with and (suspected) exposure to COVID-19; Z79.899 Other long term (current) drug therapy
CPT/HCPCS: 36415; 80048; 80307; 81001; 85025; 99284; U0003; 80320; G0480